=== PATIENT | female | born 1950 | race Caucasian/White ===

== ENCOUNTER 2023-06-18 13:35 | Inpatient (IN) | payer OTHER, MEDICAID ==
[~2023-06-18] VITALS: Ht 167.6 cm; Wt 113.4 kg
[2023-06-18 14:46] VITALS: BP_SYST 123; PULSE 70; RESP 18; TEMP 97.3; O2SAT 98
[2023-06-18] MEDS ORDERED: ACETAMINOPHEN 500 MG TABLET PO ONE (21:00)
[2023-06-18] MEDS ORDERED: KETOROLAC TROMETHAMINE 15 MG VIAL IM ONE (21:00)
[2023-06-18 21:39] LABS: BASOPHILS % (AUTO) 0.1 % (0.0-2.0); EOSINOPHILS % (AUTO) 0.1 % (0.0-4.0); HEMATOCRIT 44.8 % (36-48); HEMOGLOBIN 14.4 g/dL (12.0-16.0); LYMPHOCYTES # (AUTO) 1.7 K/uL (1.0-5.5); LYMPHOCYTES % (AUTO) 9.5 % (20.5-51.5); MEAN CORPUSCULAR HEMOGLOBIN 28 pg (27-31); MEAN CORPUSCULAR HGB CONC 32 % (32-36); MEAN CORPUSCULAR VOLUME 88 fL (79.0-98.0); MONOCYTES # (AUTO) 1.1 K/uL (0.0-1.0); NEUTROPHILS # (AUTO) 14.9 K/uL (1.8-7.7); NEUTROPHILS % (AUTO) 84.3 % (40.0-70.0); PLATELET COUNT (AUTO) 219 K/uL (130-430); WHITE BLOOD COUNT (AUTO) 17.6 K/uL (4.8-10.8)
[2023-06-18 21:46] LABS: ANION GAP 10 (5-15); CALCIUM 9.7 mg/dL (8.4-11.0); CARBON DIOXIDE 31 mmol/L (23-29); CHLORIDE 101 mmol/L (98-107); CREATININE 1.44 mg/dL (0.55-1.30); GLUCOSE 95 mg/dL (74-106); POTASSIUM 3.7 mmol/L (3.5-5.1); SODIUM SERUM 142 mmol/L (136-145); UREA NITROGEN, BLOOD 26 mg/dL (8-21)
[2023-06-18 21:50] LABS: INR 1.1 (0.8-1.2); PROTHROMBIN TIME 10.9 SECS (9.5-12.5)
[2023-06-18] MEDS ORDERED: VANCOMYCIN HCL 1,000 MG in D5W 250 ML IV ONE (22:30)
[2023-06-18] MEDS ORDERED: NS 1000 ML IV.SOLN IV ONE (22:30)
[2023-06-18] MEDS ORDERED: PIPERACILLIN/TAZO 3.375 GM in D5W 50 ML IV ONE (22:30)
[2023-06-18] MEDS ORDERED: LIP20 PO (22:35)
[2023-06-18] MEDS ORDERED: FURO-150 PO (22:35)
[2023-06-18] MEDS ORDERED: DOXY100C PO (22:35)
[2023-06-18] MEDS ORDERED: NOR10 PO (22:35)
[2023-06-18] MEDS ORDERED: FAMO-279 PO (22:35)
[2023-06-18] MEDS ORDERED: LOSA50TA28 PO (22:36)
[2023-06-18] MEDS ORDERED: MECL-160 PO (22:36)
[2023-06-18] MEDS ORDERED: METO-442 PO (22:36)
[2023-06-18] MEDS ORDERED: CHOL400C8 (22:36)
[2023-06-18] MEDS ORDERED: MONT-40 PO (22:36)
[2023-06-18] MEDS ORDERED: PIPERACILLIN/TAZOBACTAM 3.375 GM/VIAL (ZOSYN) IV ONE (22:47)
[2023-06-18 23:50] VITALS: BP_SYST 137; PULSE 63; RESP 18; TEMP 97.2; O2SAT 97
[2023-06-19] VITALS (7 sets, daily range): BP systolic 122–141; PULSE 63–70; RESP 17–18; TEMP 97.3–98.6; O2SAT 92–97
[2023-06-19] MEDS ORDERED: VANCOMYCIN HCL 1000 MG/VIAL IV ONE (02:10)
[2023-06-19] MEDS ORDERED: MECLIZINE HCL 25 MG TABLET (ANITVERT) PO PRN (11:15)
[2023-06-19] MEDS ORDERED: LORazepam 2 MG/ML VIAL IVP PRN (11:15)
[2023-06-19] MEDS ORDERED: ACETAMINOPHEN 325 MG TABLET PO PRN ×2 (11:15→11:30)
[2023-06-19] MEDS ORDERED: HYDROcodone/ACETAMIN 5-325 MG TAB (NORCO/ VICODIN) PO PRN (11:15)
[2023-06-19] MEDS ORDERED: NALOXONE HCL 0.4 MG/ML AMP (NARCAN) IVP PRN ×2 (11:15)
[2023-06-19] MEDS ORDERED: ONDANSETRON HCL 4 MG/2 ML VIAL IVP PRN (11:15)
[2023-06-19] MEDS ORDERED: HYDROcodone/ACETAMIN 10-325 MG TAB PO PRN (11:15)
[2023-06-19] MEDS ORDERED: FUROSEMIDE 20 MG TABLET PO ONE (11:30)
[2023-06-19] MEDS ORDERED: LOSARTAN POTASSIUM 50 MG TABLET (COZAAR) PO ONE (11:30)
[2023-06-19] MEDS ORDERED: FAMOTIDINE 20 MG TABLET PO ONE (11:30)
[2023-06-19] MEDS ORDERED: CHOLECALCIFEROL (VITAMIN D-3) 400 UNIT TABLET PO ONE (11:30)
[2023-06-19] MEDS ORDERED: amLODIPine BESYLATE 10 MG TABLET PO ONE (11:30)
[2023-06-19] MEDS ORDERED: PIPERACILLIN/TAZO 2.25G/DEX-IS 50 ML IV SCH (12:00)
[2023-06-19 12:37] LABS: BASOPHILS % (AUTO) 0.5 % (0.0-2.0); EOSINOPHILS # (AUTO) 0.1 K/uL (0.0-0.4); EOSINOPHILS % (AUTO) 0.7 % (0.0-4.0); HEMATOCRIT 41.4 % (36-48); HEMOGLOBIN 13.6 g/dL (12.0-16.0); LYMPHOCYTES # (AUTO) 1.4 K/uL (1.0-5.5); LYMPHOCYTES % (AUTO) 13.8 % (20.5-51.5); MEAN CORPUSCULAR HEMOGLOBIN 29 pg (27-31); MEAN CORPUSCULAR HGB CONC 33 % (32-36); MEAN CORPUSCULAR VOLUME 87 fL (79.0-98.0); MONOCYTES # (AUTO) 0.8 K/uL (0.0-1.0); MONOCYTES % (AUTO) 7.9 % (1.7-9.3); NEUTROPHILS % (AUTO) 77.1 % (40.0-70.0); PLATELET COUNT (AUTO) 194 K/uL (130-430); RED BLOOD CELL COUNT(AUTO) 4.75 MIL/uL (4.2-6.2); RED CELL DISTRIBUTION WIDTH 15.2 % (9.0-15.0); WHITE BLOOD COUNT (AUTO) 10.4 K/uL (4.8-10.8)
[2023-06-19 12:42] LABS: ANION GAP 11 (5-15); CALCIUM 8.7 mg/dL (8.4-11.0); CARBON DIOXIDE 27 mmol/L (23-29); CHLORIDE 103 mmol/L (98-107); CREATININE 1.25 mg/dL (0.55-1.30); GLUCOSE 94 mg/dL (74-106); POTASSIUM 3.6 mmol/L (3.5-5.1); SODIUM SERUM 141 mmol/L (136-145); UREA NITROGEN, BLOOD 28 mg/dL (8-21)
[2023-06-19] MEDS: NORMAL SALINE 5 ML DISP.SYRIN IVF SCH ×2 (14:00→20:37)
[2023-06-19] MEDS: MONTELUKAST 10 MG TABLET PO SCH (17:51)
[2023-06-19] MEDS: METOPROLOL TARTRATE 50 MG TABLET PO SCH (20:36)
[2023-06-19] MEDS ORDERED: DOXYCYCLINE HYCLATE 100 MG CAPSULE PO SCH (21:00)
[2023-06-20] VITALS: BP_SYST 127; PULSE 88; RESP 20; TEMP 98.2; O2SAT 95
[2023-06-20] MEDS: VANCOMYCIN HCL 1,250 MG in NS 250 ML IV SCH (02:39)
[2023-06-20] MEDS: NORMAL SALINE 5 ML DISP.SYRIN IVF SCH ×3 (05:52→23:09)
[2023-06-20 06:20] LABS: BASOPHILS % (AUTO) 0.5 % (0.0-2.0); EOSINOPHILS # (AUTO) 0.1 K/uL (0.0-0.4); EOSINOPHILS % (AUTO) 1.9 % (0.0-4.0); HEMATOCRIT 41.9 % (36-48); HEMOGLOBIN 13.4 g/dL (12.0-16.0); LYMPHOCYTES # (AUTO) 1.3 K/uL (1.0-5.5); LYMPHOCYTES % (AUTO) 19.1 % (20.5-51.5); MEAN CORPUSCULAR HEMOGLOBIN 28 pg (27-31); MEAN CORPUSCULAR HGB CONC 32 % (32-36); MEAN CORPUSCULAR VOLUME 88 fL (79.0-98.0); MONOCYTES # (AUTO) 0.7 K/uL (0.0-1.0); MONOCYTES % (AUTO) 10.4 % (1.7-9.3); NEUTROPHILS # (AUTO) 4.7 K/uL (1.8-7.7); NEUTROPHILS % (AUTO) 68.1 % (40.0-70.0); PLATELET COUNT (AUTO) 214 K/uL (130-430); RED BLOOD CELL COUNT(AUTO) 4.75 MIL/uL (4.2-6.2); RED CELL DISTRIBUTION WIDTH 14.9 % (9.0-15.0)
[2023-06-20 06:51] LABS: ANION GAP 9 (5-15); CALCIUM 8.7 mg/dL (8.4-11.0); CARBON DIOXIDE 26 mmol/L (23-29); CHLORIDE 107 mmol/L (98-107); CREATININE 1.11 mg/dL (0.55-1.30); GLUCOSE 77 mg/dL (74-106); PHOSPHORUS 3.5 mg/dL (2.7-4.5); POTASSIUM 3.5 mmol/L (3.5-5.1); SODIUM SERUM 142 mmol/L (136-145); UREA NITROGEN, BLOOD 21 mg/dL (8-21)
[2023-06-20 08:30] VITALS: BP_SYST 139; PULSE 67; RESP 18; TEMP 97.9; O2SAT 92
[2023-06-20] MEDS: FUROSEMIDE 20 MG TABLET PO SCH (08:57)
[2023-06-20] MEDS: amLODIPine BESYLATE 10 MG TABLET PO SCH (08:58)
[2023-06-20] MEDS: CHOLECALCIFEROL (VITAMIN D-3) 400 UNIT TABLET PO SCH (08:58)
[2023-06-20] MEDS: ATORVASTATIN 20 MG TABLET PO SCH (08:58)
[2023-06-20] MEDS: LOSARTAN POTASSIUM 50 MG TABLET (COZAAR) PO SCH (08:59)
[2023-06-20] MEDS: FAMOTIDINE 20 MG TABLET PO SCH (08:59)
[2023-06-20 11:20] VITALS: O2SAT 92
[2023-06-20 12:30] VITALS: BP_SYST 124; PULSE 71; RESP 18; TEMP 97.8; O2SAT 90
[2023-06-20] MEDS: MONTELUKAST 10 MG TABLET PO SCH (18:03)
[2023-06-20 20:00] VITALS: BP_SYST 144; PULSE 72; RESP 18; TEMP 98.9; O2SAT 92
[2023-06-20] MEDS: METOPROLOL TARTRATE 50 MG TABLET PO SCH (20:17)
[2023-06-20 23:25] VITALS: BP_SYST 144; PULSE 72; RESP 18; TEMP 98.9; O2SAT 92
[2023-06-21] MEDS: VANCOMYCIN HCL 1,250 MG in NS 250 ML IV SCH (00:17)
[2023-06-21 01:29] VITALS: BP_SYST 124; PULSE 84; RESP 18; TEMP 98.6; O2SAT 96
[2023-06-21 04:55] LABS: ERYTHROCYTE SEDIMENTATION RATE 62 MM/HR (0-20)
[2023-06-21 05:04] LABS: BASOPHILS % (AUTO) 0.5 % (0.0-2.0); EOSINOPHILS # (AUTO) 0.2 K/uL (0.0-0.4); EOSINOPHILS % (AUTO) 2.7 % (0.0-4.0); HEMATOCRIT 43.5 % (36-48); HEMOGLOBIN 13.9 g/dL (12.0-16.0); LYMPHOCYTES # (AUTO) 1.8 K/uL (1.0-5.5); LYMPHOCYTES % (AUTO) 29.5 % (20.5-51.5); MEAN CORPUSCULAR HEMOGLOBIN 28 pg (27-31); MEAN CORPUSCULAR HGB CONC 32 % (32-36); MEAN CORPUSCULAR VOLUME 88 fL (79.0-98.0); MONOCYTES # (AUTO) 0.8 K/uL (0.0-1.0); MONOCYTES % (AUTO) 12.6 % (1.7-9.3); NEUTROPHILS # (AUTO) 3.3 K/uL (1.8-7.7); NEUTROPHILS % (AUTO) 54.7 % (40.0-70.0); PLATELET COUNT (AUTO) 247 K/uL (130-430); RED BLOOD CELL COUNT(AUTO) 4.96 MIL/uL (4.2-6.2); RED CELL DISTRIBUTION WIDTH 15.1 % (9.0-15.0); WHITE BLOOD COUNT (AUTO) 6.1 K/uL (4.8-10.8)
[2023-06-21] MEDS: NORMAL SALINE 5 ML DISP.SYRIN IVF SCH ×2 (05:07→09:57)
[2023-06-21 05:20] LABS: ALANINE AMINOTRANSFERASE 52 U/L (12-78); ALBUMIN 2.5 g/dL (3.4-4.8); ANION GAP 11 (5-15); ASPARTATE AMINOTRANSFERASE 44 U/L (10-37); CALCIUM 8.8 mg/dL (8.4-11.0); CARBON DIOXIDE 26 mmol/L (23-29); CHLORIDE 105 mmol/L (98-107); CREATININE 1.16 mg/dL (0.55-1.30); GLUCOSE 83 mg/dL (74-106); POTASSIUM 3.3 mmol/L (3.5-5.1); SODIUM SERUM 142 mmol/L (136-145); TOTAL BILIRUBIN 0.7 mg/dL (0.0-1.0); TOTAL PROTEIN, SERUM 6.5 g/dL (6.4-8.3); UREA NITROGEN, BLOOD 22 mg/dL (8-21)
[2023-06-21 08:00] VITALS: BP_SYST 135; PULSE 63; RESP 16; TEMP 96.7; O2SAT 97
[2023-06-21] MEDS ORDERED: DOXY100C5 PO (09:29)
[2023-06-21] MEDS: CHOLECALCIFEROL (VITAMIN D-3) 400 UNIT TABLET PO SCH (09:50)
[2023-06-21] MEDS: FAMOTIDINE 20 MG TABLET PO SCH (09:51)
[2023-06-21] MEDS: LOSARTAN POTASSIUM 50 MG TABLET (COZAAR) PO SCH (09:51)
[2023-06-21] MEDS: ATORVASTATIN 20 MG TABLET PO SCH (09:52)
[2023-06-21] MEDS: amLODIPine BESYLATE 10 MG TABLET PO SCH (09:53)
[2023-06-21] MEDS: FUROSEMIDE 20 MG TABLET PO SCH (09:54)
[2023-06-21 12:00] VITALS: BP_SYST 133; PULSE 75; RESP 16; TEMP 97.7; O2SAT 97
[2023-06-21 15:21] VITALS: BP_SYST 133; PULSE 75; RESP 16; TEMP 97.7; O2SAT 97
== END 2023-06-21 15:52 | disposition home or self-care (01) | DRG 872 ==
LOC: SED 13:35 → SMU 22:25
PROVIDERS: ADMIT Preventive Medicine Preventive Medicine/Occupational Environmental Medicine; ATTEND Preventive Medicine Preventive Medicine/Occupational Environmental Medicine
DX: A41.9 Sepsis, unspecified organism (principal); L03.115 Cellulitis of right lower limb; N17.9 Acute kidney failure, unspecified; I10 Essential (primary) hypertension; J45.909 Unspecified asthma, uncomplicated; E78.00 Pure hypercholesterolemia, unspecified; D72.829 Elevated white blood cell count, unspecified; E88.09 Other disorders of plasma-protein metabolism, not elsewhere classified; E87.6 Hypokalemia; R73.9 Hyperglycemia, unspecified; R74.01 Elevation of levels of liver transaminase levels
CPT/HCPCS: 36415; 73590-TC; 80048; 80053; 83735; 84100; 84484; 85025; 85610-TC; 85651-TC; 85730-TC; 87040; 93971; 99285; J1885; J2543; J3370; J7050; J7060